=== PATIENT | female | born 1995 | race Caucasian/White ===

== ENCOUNTER 2019-02-14 19:56 | Outpatient (CLI) | payer OTHER ==
[~2019-02-14] VITALS: Ht 160 cm; Wt 59.5 kg
[2019-02-14 20:24] VITALS: BP 117/83
[2019-02-14] MEDS ORDERED: ZYRTTAB8 PO (20:34)
--- NOTE | 2019-02-14 21:02 | IPNPDOC ---
Text Note Date of Service The patient was seen on 02/14/19. NOTE 23 yo at 37+3 weeks gestation presented to L&D with the complaint of a small amount of vaginal discharge since about 1200 today. She had PROM with her first and was concerned, however the leakage never seemed like fluid. Today she denies any vaginal bleeding or contractions. She endorses excellent movement. Chaperoned by L&D RN Vitals - VSS, afebrile, normotensive, non tachycardic General - AAXO3, laying in bed, NAD, pleasant and conversant Abdomen - Gravid uterus, no fundal tenderness Pelvic - Normal external genitalia. Speculum placed into the vagina and the cervix was visualized. Scant physiologic discharge in the vaginal vault. Negative pooling of fluid. Swab obtained for microscopy and nitrazine. Speculum removed. Cervix cl/thick/high to digital exam. Negative nitrazine, negative ferning, negative YEIMI for yeast and negative for BV Bedside TAUS (anatomy not assessed): Viable SIUP in cephalic presentation. +gross movement. DAVIS 11.9cm. FCA measured at 130s. FHR tracing - Moderate variability, +accels, no decels, Reactive NST. 2 contractions on monitor. No evidence of ruptured membranes or infection. Suspect discharge is physiologic. Reassuring status on NST and TAUS. Discharged home with return precautions. All questions answered. DO WANG Lennon Fishbone, I+O Esequiel PIÑA, I+O Vital Signs Date Time Temp Pulse Resp B/P (MAP) Pulse Ox O2 Delivery O2 Flow Rate FiO2 02/14/19 20:24 98.4 88 16 117/83 (94) TITUS GARRISON DO Feb 14, 2019 21:02
== END 2019-02-14 20:29 | disposition home or self-care (01) ==
LOC: M LDO 19:56
PROVIDERS: ATTEND Obstetrics & Gynecology
DX: O26.893 Other specified pregnancy related conditions, third trimester (principal); N89.8 Other specified noninflammatory disorders of vagina; Z3A.37 37 weeks gestation of pregnancy
CPT/HCPCS: 59025; 76815; G0378; G0463

== ENCOUNTER 2019-02-19 10:21 | Inpatient (IN) | payer OTHER ==
[2019-02-19] VITALS (25 sets, daily range): BP systolic 116–146; BP diastolic 71–90
[~2019-02-19] VITALS: Ht 160 cm; Wt 58.4 kg
[~2019-02-19 10:21] MED LIST: ZYRTTAB8 PO
[2019-02-19] MEDS ORDERED: BUTORPHANOL 2 MG/ML INJ (J0595) IV PRN (13:45)
[2019-02-19 14:45] LABS: HEMATOCRIT 32.3 % (36.0-47.0); HEMOGLOBIN 10.7 g/dl (12.0-15.5); MEAN CORPUSCULAR HEMOGLOBIN 28.3 pg (27.0-33.0); MEAN CORPUSCULAR HGB CONC 33.1 g/dl (32.0-36.5); MEAN CORPUSCULAR VOLUME 85.4 fl (80.0-96.0); PLATELET COUNT, AUTOMATED 119 10^3/uL (150-450); RED BLOOD COUNT 3.78 10^6/uL (4.00-5.40); WHITE BLOOD COUNT 6.5 10^3/uL (4.0-10.0)
[2019-02-19] MEDS ORDERED: LACTATED RINGER'S 1000 ML IV STA (19:44)
--- NOTE | 2019-02-19 19:57 | HPEPDOC ---
Obstetrical History & Physical General Date of Admission History of Present Illness 23 yo at 38+1 weeks gestation by LMP of [id number] presented to L&D today with regular, painful contractions acutely worsening as the day progressed. She denies any vaginal bleeding or leakage of fluid. She endorses excellent movement. is uncomplicated. She had care originally in [facility] but transferred to the [facility] in 3rd trimester. Chief Complaint: Contractions, term Information Provided By: Patient Age: 23 : 2 Term: 1 Pre-term: 0 Abortions: 0 Livin Care Care: Good Care Dating Final EDC: Mar 04, 2019 Final EDC for Daily Update: Mar 04, 2019 Final EDC by: LMP ([id number]) LMP: May 28, 2018 Antepartum Course Diagnos(e)s Exercise induced asthma Anxiety and history of panic attacks Past Medical History Past Obstetrical History : Past Obstetrical History: Multigravida ( at 40 weeks in 2017 with pelvis proven to 8lbs 1oz) Type of Delivery: Spontaneous Vaginal Del. Complications: No LABORATORY ADMINISTRATIVE DIRECTOR History: No pertinent history Past Medical History Medical History Exercise induced asthma Anxiety and history of panic attacks Surgical History: Mccoy teeth Family History Significant Family History: No pertinent family hx Social History Marital Status: Family situation: Spouse/partner deployed ( attempting to return from [place] this Saturday) Psychosocial History: Anxiety (History of anxiety and panic attacks) * Smoker: non-smoker Alcohol: Denies Drugs: denies Imunizations Tdap status: current Influenza Status: current Allergies Coded Allergies: Peanut (Verified Allergy, Unknown, HIVES, 02/14/19) Medications Scheduled Cetirizine HCl/Pseudoephedrine (Zyrtec-D Tablet) 1 Each Tab.er.12h, 1 TAB PO BID for allergy symptoms Physical Examination Physical Examination GENERAL: Alert and oriented times three. ABDOMEN: Gravid and non-tender to touch. FETUS: Is vertex (VTX) by sterile vaginal examination (SVE), EXTREMITIES: No edema. Patient made cervical change from 3 to 5cm while being observed today. Vital Signs/I&O Vital Signs Date Time Temp Pulse Resp B/P (MAP) Pulse Ox O2 Delivery O2 Flow Rate FiO2 02/19/19 19:11 98.1 75 16 134/89 (104) Laboratory Data 24H LABS Laboratory Tests 2 02/19/19 14:13: Nucleated Red Blood Cells % (auto) 0.0, Hepatitis B Surface Antigen (Rapid) NEGATIVE CBC/BMP Laboratory Tests 02/19/19 14:13 Red Blood Count 3.78 L, Mean Corpuscular Volume 85.4, Mean Corpuscular Hemoglobin 28.3, Mean Corpuscular Hemoglobin Concent 33.1, Red Cell Distribution Width 14.4 Urine Culture: No Growth Pertinent Laboratoy Data Blood Type: O+ RBC Antibody Screen: Negative HIV: Negative Hepatitis B: Negative Hepatitis C: Negative Rapid Plasma Reagin: Nonreactive Rubella: Immune Varicella: Immune Chlamydia/Gonorrhea: Negative Group B Streptococcus: Negative Quad Screen Test: Unknown Cystic Fibrosis: Unknown Glucose Tolerance Test: 85 Anatomy Ultrasound Placenta Location: Anterior Normal Anatomy: Yes Placenta Previa: No Vaginal Examination Dilation: 5 cm Effacement: 80% Station: -2 Cervical Consistency: Soft Cervical Position: Middle Presentation: Cephalic presentation Position: Vertex (occiput) Assessment Heart Rate (FHR): 130 Variability: Moderate Accelerations: Positive Decelerations: None Tocometer Contractions: Yes Frequency: regular, every 2-5 min. Duration: greater than 60 seconds Strength: palpated as moderate Assessment/Plan Assessment 23 yo at 38+1 weeks gestation presented in labor. Made cervical change during observation from 3 to 5cm. Plan Admit to L&D for expectant management of labor. Will augment labor as clinically indicated. Apply IV fluids. GBS negative. Clear liquid diet. Patient candidate for epidural if desired. Anticipate . DO BLADIMIR Lennon CHRISTOPHER J. DO Feb 19, 2019 19:57
[2019-02-19] MEDS ORDERED: ONDANSETRON 4MG/2ML VIAL (J2405) IV PRN ×2 (20:00→21:00)
[2019-02-19] MEDS ORDERED: FENTANYL 2MCG/ML ROPIVACAINE 0.2% IN 0.9% NACL 100ML IVBAG As Ordered ONE (20:15)
[2019-02-19] MEDS ORDERED: EPIDURAL/PCA KEYS XX PRN (21:00)
[2019-02-19] MEDS ORDERED: diphenhydrAMINE INJ 50MG/ML VIAL (J1200) IV PRN (21:00)
[2019-02-19] MEDS ORDERED: FENTANYL/ROPIVACAINE/NACL BAG 100 ML EPIDURAL SCH (21:00)
[2019-02-19] MEDS ORDERED: NALOXONE INJ 0.4 MG/1 ML VIAL (J2310) IV PRN (21:00)
[2019-02-19] MEDS ORDERED: LACTATED RINGER'S 1000 ML IV PRN (21:00)
[2019-02-19] MEDS ORDERED: ePHEDrine SULFATE 25 MG/5 ML(5MG/ML) SYRINGE IV PRN (21:00)
[2019-02-19] MEDS ORDERED: REFRIGERATOR IV KEYS XX PRN (21:00)
[2019-02-19] MEDS ORDERED: EPIDURAL COMMENT XX SCH (21:00)
[2019-02-20] VITALS (15 sets, daily range): BP systolic 119–156; BP diastolic 68–96
[2019-02-20] MEDS ORDERED: OXYTOCIN 30 UNITS IN 0.9% NaCl 500ML IV BAG (J2590) As Ordered ONE (00:39)
--- NOTE | 2019-02-20 00:41 | IPNPDOC ---
Text Note Date of Service The patient was seen on 02/20/19. NOTE Patient comfortable with epidural in place. Cervix: /1. Incidental SROM with exam, productive of a large amount of clear fluid. FHR Cat I. Patient progressing well. DO Rudi VS,Esequiel, I+O VS, Esequiel, I+O Laboratory Tests 02/19/19 14:13 Red Blood Count 3.78 L, Mean Corpuscular Volume 85.4, Mean Corpuscular Hemoglobi n 28.3, Mean Corpuscular Hemoglobin Concent 33.1, Red Cell Distribution Width 14.4 Vital Signs Date Time Temp Pulse Resp B/P (MAP) Pulse Ox O2 Delivery O2 Flow Rate FiO2 02/19/19 22:38 83 18 124/78 (93) 02/19/19 19:11 98.1 I&O- Last 24 Hours up to 6 AM 02/20/19 06:00 Intake Total 1882 ml Output Total 150 ml Balance 1732 ml TITUS GARRISON DO Feb 20, 2019 00:41
--- NOTE | 2019-02-20 03:05 | DNPDOC ---
[facility] Delivery Note Delivery Note DATE OF DELIVERY: 20Feb2019 at ~0250 PREDELIVERY DIAGNOSIS: 38+2 weeks gestation and active labor POST DELIVERY DIAGNOSIS: Delivered. PROCEDURE: Spontaneous vaginal delivery CUSTOMER SOLUTIONS SPECIALIST: Dr. Grijalva ANESTHESIA: None ESTIMATED BLOOD LOSS: 200 mL. FINDINGS: Viable male , 6lbs 14oz, Apgars 8/9 DELIVERY SUMMARY: Presented to room as patient felt urge to push. Exam revealed fetus at +2 station. The bed was broken down and she was prepped for delivery. With excellent maternal effort her delivered after less than 5 minutes of pushing. presentation was MICHELLE with restitution to LOT. There was a tight, double nuchal cord that was delivered through and reduced manually with delivery. The right anterior shoulder delivered with gentle traction followed easily by the remainder of the body. The infant was dried and stimulated on the field and a bulb suction was used. The was placed on the maternal abdomen and cried vigorously. The three vessel cord was then clamped and cut by the patient's mother in law after appropriate time delay. Third stage was then completed with gentle traction on the cord and it was productive of an intact placenta. The uterine fundus was firmed with massage and pitocin was administered IV bolus. Inspection of the vagina, perineum, and cervix revealed no lacerations. The fundus was palpated again and was firm. Sponge, instrument, and needle counts were correct X2. Mother stable when I le ft the room. DO BLADIMIR Lennon CHRISTOPHER J. DO Feb 20, 2019 03:05
[2019-02-20] MEDS ORDERED: OXYTOCIN DRIP 30 UNITS in APPROPRIATE DILUENT 1 EA IV SCH (04:12)
[2019-02-20] MEDS ORDERED: ACETAMINOPHEN TAB 650MG DOSE (2X325MG) PO PRN (04:15)
[2019-02-20] MEDS ORDERED: MEASLES,MUMPS,RUBELLA VACCINE INJ (MMR-II) (90707) SC SCH (04:15)
[2019-02-20] MEDS ORDERED: DIBUCAINE 1% OINTMENT 30GM TOP PRN (04:15)
[2019-02-20] MEDS ORDERED: DOCUSATE SODIUM 100 MG CAP PO PRN (04:15)
[2019-02-20] MEDS ORDERED: IBUPROFEN 600 MG TAB PO PRN (04:15)
[2019-02-20] MEDS ORDERED: IBUPROFEN 800 MG TAB PO PRN (04:15)
[2019-02-20] MEDS ORDERED: ACETAMINOPHEN 500 MG TAB PO PRN (04:15)
[2019-02-20] MEDS ORDERED: ONDANSETRON 4MG/2ML VIAL (J2405) IV PRN (04:15)
[2019-02-20] MEDS ORDERED: RHOGAM 300 MCG (1500 IU) INJ (J2790) IM SCH (04:15)
[2019-02-20] MEDS ORDERED: METHYLERGONOVINE MALEATE 0.2 MG/ML VIAL (J2210) As Ordered ONE ×2 (05:44→05:45)
[2019-02-20] MEDS ORDERED: METHYLERGONOVINE MALEATE 0.2 MG/ML VIAL (J2210) IM ONE (05:45)
[2019-02-20 14:19] LABS: RUBELLA IgG QUALITATIVE IMMUNE (IMMUNE)
--- NOTE | 2019-02-20 14:56 | IPN ---
DATE: 02/20/2019 This patient requested circumcision of her male . After discussing risks and benefits of circumcision, the medical and nonmedical indications, penile block and aftercare, she expressed understanding of penile block and aftercare, signed the consent form. All questions were answered. 20-minute discussion.
[2019-02-20] MEDS: PRENATAL VITAMINS CHEWABLE TABLET PO SCH (19:00)
[2019-02-21 05:46] VITALS: BP 117/75
[2019-02-21] MEDS ORDERED: PRENCHW PO (07:02)
[2019-02-21] MEDS ORDERED: IBUP80TA PO (07:02)
[2019-02-21] MEDS ORDERED: COLA100C5 PO (07:02)
[2019-02-21] MEDS ORDERED: DIBU10OI TOP (07:02)
[2019-02-21] MEDS: PRENATAL VITAMINS CHEWABLE TABLET PO SCH (08:56)
--- NOTE | 2019-02-21 14:30 | DSES ---
DATE OF ADMISSION: 02/19/2019 DATE OF DISCHARGE: 02/21/2019 This is a 23-year-old 2, now para 2, admitted at 31 and 1 weeks of gestation with contractions, spontaneous vaginal delivery male, 6 pounds 4 ounces. scores of 8 and 9 at one and five minutes respectively. Admitting hemoglobin 10.7 hematic 32.3 and platelets were 119. On discharge, her blood pressure was 117/75, respirations 16, pulse 85, temperature is 98.0. We discussed phlebitis, cystitis, mastitis, endometritis and cellulitis, diet, exercise, pain management, perineal, breast and wound care. The patient was given her medications upon discharge the rest examination unremarkable. Normocephalic, atraumatic. Neck: Full range of motion. Pupils equal and reactive to light. Distal pulses symmetric. No evidence of deep venous thrombosis (DVT), pulmonary embolism (PE), or superficial phlebitis. Chest is clear bilaterally bases. No wheeze or rhonchi. No costovertebral angle (CVA) tenderness. Abdomen soft uterus two below. Lochia is moderate. Four quadrant bowel sounds are normal and perineum is intact. There are no rashes, lesions or pruritus. No complaints of arthralgia, myalgia. No complaint of joint pain. No complaint of cough, wheeze, shortness breath or dyspnea on exertional. No nausea, vomiting, diarrhea or constipation. No urgency or frequency. The patient is presently , going well. The patient plans on a six week checkup at [facility] and we will discuss control at that time. All questions were answered. 20-minute discussion.
== END 2019-02-21 12:45 | disposition home or self-care (01) | DRG 807 ==
LOC: M LDO 10:21 → M LDI 20:11 → M OBS 02-20 10:31
PROVIDERS: ADMIT Obstetrics & Gynecology; ATTEND Obstetrics & Gynecology
PROC: 10E0XZZ Delivery of Products of Conception, External Approach (ICD-10-PCS; principal; 2019-02-20)
DX: O69.1XX0 Labor and delivery complicated by cord around neck, with compression, not applicable or unspecified (principal); Z37.0 Single live birth; Z3A.38 38 weeks gestation of pregnancy

== ENCOUNTER 2020-02-03 08:58 | Day surgery (SDC) | payer OTHER ==
[~2020-02-03] VITALS: Ht 160 cm; Wt 51.2 kg
[~2020-02-03 08:58] MED LIST changes: +BENA25CA4 PO; +CETI10CH PO; +COLA100C5 PO; +CYMB1CAP5 PO; +DIBU10OI TOP; +IBUP80TA PO; +LIDOCAINE 1% MDV 20ML VIAL SQ PRN; +LR 1,000 ML IV ONE; +PRENCHW PO
[2020-02-03 09:34] LABS: HEMATOCRIT 36.8 % (36.0-47.0); HEMOGLOBIN 12.4 g/dl (12.0-15.5); MEAN CORPUSCULAR HEMOGLOBIN 29.9 pg (27.0-33.0); MEAN CORPUSCULAR HGB CONC 33.7 g/dl (32.0-36.5); MEAN CORPUSCULAR VOLUME 88.7 fl (80.0-96.0); PLATELET COUNT, AUTOMATED 212 10^3/uL (150-450); RED BLOOD COUNT 4.15 10^6/uL (4.00-5.40); WHITE BLOOD COUNT 6.8 10^3/uL (4.0-10.0)
[2020-02-03 09:57] LABS: BLOOD UREA NITROGEN 12 MG/DL (7-18); CALCIUM LEVEL 8.3 MG/DL (8.5-10.1); CARBON DIOXIDE LEVEL 26 MEQ/L (21-32); CHLORIDE LEVEL 108 MEQ/L (98-107); CREATININE FOR GFR 0.57 MG/DL (0.55-1.30); GLOMERULAR FILTRATION RATE > 60.0 (>60); GLUCOSE, FASTING 88 MG/DL (70-100); HCG, SERUM QUANTITATIVE < 1.0 MIU/ML; POTASSIUM SERUM 3.8 MEQ/L (3.5-5.1); SODIUM LEVEL 140 MEQ/L (136-145)
[2020-02-03] MEDS ORDERED: ROCURONIUM BROMIDE 50 MG/5 ML VIAL As Ordered ONE (10:10)
[2020-02-03] MEDS ORDERED: fentaNYL 100 MCG/2 ML INJECTION (J3010) As Ordered ONE ×2 (10:10→13:36)
[2020-02-03] MEDS ORDERED: LIDOCAINE 2% 100MG/5ML SDV (FOR ANES.) As Ordered ONE (10:10)
[2020-02-03] MEDS ORDERED: propofoL 200 MG/20 ML VIAL As Ordered ONE (10:10)
[2020-02-03] MEDS ORDERED: MIDAZOLAM INJ 2MG/2ML VIAL (J2250 PER 1MG) As Ordered ONE ×2 (10:11→10:49)
[2020-02-03] MEDS ORDERED: dexameTHASONE 4 MG/ML 1ML VIAL (J1100 PER 1MG) As Ordered ONE (10:11)
[2020-02-03] MEDS ORDERED: ONDANSETRON 4MG/2ML VIAL As Ordered ONE (10:11)
[2020-02-03] MEDS ORDERED: BUPIVACAINE HCL 0.5% 10ML VIAL As Ordered ONE (10:28)
[2020-02-03] MEDS ORDERED: METOCLOPRAMIDE INJ 10MG/2ML VIAL (J2765 PER 1) As Ordered ONE ×2 (10:46→12:26)
[2020-02-03] MEDS ORDERED: ACETAMINOPHEN 650 MG SUPP As Ordered ONE (11:38)
[2020-02-03] MEDS ORDERED: KETOROLAC 60MG 2ML VIAL As Ordered ONE (11:48)
[2020-02-03] MEDS ORDERED: SUGAMMADEX SODIUM 500 MG/5 ML VIAL (BRIDION) As Ordered ONE (11:48)
[2020-02-03] MEDS ORDERED: fentaNYL 100 MCG/2 ML INJECTION (J3010) IV PRN (12:45)
[2020-02-03] MEDS ORDERED: HYDROMORPHONE HCL 0.5 MG/ 0.5 ML SYRINGE (J1170 PER 1) IV PRN (12:45)
[2020-02-03] MEDS ORDERED: LR 1,000 ML IV SCH (12:45)
[2020-02-03] MEDS ORDERED: oxyCODONE 5MG TAB PO PRN (12:45)
[2020-02-03] MEDS ORDERED: KETOROLAC 30 MG/ML 1ML VIAL IV PRN (12:45)
[2020-02-03] MEDS ORDERED: ONDANSETRON 4MG/2ML VIAL IV PRN (12:45)
[2020-02-03] MEDS: MEPERIDINE INJ 25 MG/ML VIAL (J2175) IV PRN ×2 (12:47→12:59)
[2020-02-03] MEDS ORDERED: MEPERIDINE INJ 25 MG/ML VIAL (J2175) As Ordered ONE (12:49)
[2020-02-03 14:35] VITALS: BP 115/69
--- NOTE | 2020-02-04 14:00 | RO ---
DATE OF PROCEDURE: 02/03/2020 PREOPERATIVE DIAGNOSIS: Satisfied parity POSTOPERATIVE DIAGNOSIS: Satisfied parity OPERATION PROPOSED: Operative laparoscopy, bilateral salpingectomy. OPERATION PERFORMED: Operative laparoscopy, bilateral salpingectomy. SURGEON: Dr. Evin Wren POCKET GRINDER OPERATOR: Dr. Noonan (For retraction, extraction and visualization, without which the surgery could not be completed). ANESTHESIA: General plus local anesthetic for intraperitoneal procedures. ESTIMATED BLOOD LOSS: Less than 20 mL DESCRIPTION OF PROCEDURE: After adequate time out, prepped and draped in the lithotomy position, Ocasio catheter in the bladder draining clear urine, acetaminophen suppository 1300 mg per rectum, sequentials in place. No antibiotics. COVID negative. A small subumbilical incision was made. The Veress needle was applied, 3.6 liters of CO2 at a flow rate of 14 to a pressure 15. Direct entry with the 0 scope 5 mm. Panoramic review, the upper abdomen was normal on the right side, upper abdomen on the left side was normal, both ovaries were appeared to be normal, both tubes to the fimbriated end were normal, the appendix itself appeared to be normal, the uterus was small midline, and the cul-de-sac was clear. There was a little bit of residual blood, but this was from her period. Her last menstrual period (LMP) started 02/03/2020. Two 5 mm ports were placed on the left side. We then elevated the right tube and using the LigaSure we ligated off the right tube to the cornual end. We then dropped it into the abdomen. We then did a similar procedure on the left side elevating the tube. Using the LigaSure, we excised off the left tube to the cornual end. After which, we picked up the tubes separately and brought them through the 5 mm port. Both tubes were sent to pathology under separate cover. Panoramic review after, showed no evidence of active bleeding, both ovaries appeared to be normal and intact. The uterus itself was complete. With that done, instrument and pad count correct. We deflated the abdomen to 4 mm pressure. We removed the two lateral ports. We removed the mainstem port. We closed up the incisional sites with #4-0 Vicryl using Dermabond to close the skin sites. We then went down below and removed the uterine elevator and the Ocasio catheter. The patient was sent to recovery in good condition.
== END 2020-02-03 15:00 | disposition home or self-care (01) ==
LOC: M SDC 08:58
PROVIDERS: ATTEND Obstetrics & Gynecology
DX: Z30.2 Encounter for sterilization (principal); Z91.010 Allergy to peanuts; Z91.018 Allergy to other foods; K21.9 Gastro-esophageal reflux disease without esophagitis; F41.9 Anxiety disorder, unspecified; F32.9 Major depressive disorder, single episode, unspecified
CPT/HCPCS: 36415; 58661; 80048; 84702; 85027; 88302; J1100; J1885; J2175; J2250; J2405; J2765; J3010

== ENCOUNTER 2020-04-12 13:37 | Emergency (ER) | payer OTHER ==
[~2020-04-12] VITALS: Ht 160 cm; Wt 50.7 kg
[~2020-04-12 13:37] MED LIST changes: -LIDOCAINE 1% MDV 20ML VIAL SQ PRN; -LR 1,000 ML IV ONE
[2020-04-12] MEDS ORDERED: AMOX500C PO (14:12)
[2020-04-12] MEDS ORDERED: DOXY100T PO (14:12)
[2020-04-12 14:41] LABS: HEMATOCRIT 31.1 % (36.0-47.0); HEMOGLOBIN 10.7 g/dl (12.0-15.5); MEAN CORPUSCULAR HEMOGLOBIN 30.7 pg (27.0-33.0); MEAN CORPUSCULAR HGB CONC 34.4 g/dl (32.0-36.5); MEAN CORPUSCULAR VOLUME 89.4 fl (80.0-96.0); PLATELET COUNT, AUTOMATED 184 10^3/uL (150-450); RED BLOOD COUNT 3.48 10^6/uL (4.00-5.40); WHITE BLOOD COUNT 4.2 10^3/uL (4.0-10.0)
[2020-04-12 15:18] LABS: ALT/SGPT 36 U/L (12-78); BILIRUBIN,DIRECT 0.4 MG/DL (0.0-0.2); BILIRUBIN,TOTAL 2.1 MG/DL (0.2-1.0); BLOOD UREA NITROGEN 11 MG/DL (7-18); CALCIUM LEVEL 9.1 MG/DL (8.5-10.1); CARBON DIOXIDE LEVEL 29 MEQ/L (21-32); CHLORIDE LEVEL 105 MEQ/L (98-107); CREATININE FOR GFR 0.56 MG/DL (0.55-1.30); GLOMERULAR FILTRATION RATE > 60.0 (>60); GLUCOSE, FASTING 85 MG/DL (70-100); LIPASE 83 U/L (73-393); POTASSIUM SERUM 3.6 MEQ/L (3.5-5.1); SODIUM LEVEL 139 MEQ/L (136-145); TOTAL PROTEIN 7.4 GM/DL (6.4-8.2)
[2020-04-12 17:24] LABS: CPK CREATINE PHOSPHOKINASE 46 U/L (26-192); HEPATITIS A ANTIBODY IGM NEGATIVE (NEGATIVE); HEPATITIS B CORE ANTIBODY IGM NEGATIVE (NEGATIVE); HEPATITIS B SURFACE ANTIGEN NEGATIVE (NEGATIVE); HEPATITIS C VIRUS ABY INDEX 0.2 INDEX (<0.8)
--- NOTE | 2020-04-12 19:11 | REPVR ---
PROCEDURE INFORMATION: Exam: US Abdomen, Limited; Right Upper Quadrant Exam date and time: 04/12/2020 5:17 PM Age: 24 years old Clinical indication: Abdominal pain; Additional info: Jaundice TECHNIQUE: Imaging protocol: US abdomen. Real time ultrasound with image documentation. Limited exam focused on the right upper quadrant. COMPARISON: No relevant prior studies available. FINDINGS: Liver: The echogenicity of the liver is within normal limits. No liver lesion is identified from the images obtained. The contour of the liver is smooth. No hepatomegaly is noted. Gallbladder: Normal. No gallstones, masses, sonographic Gonzales's sign, gallbladder wall thickening, or pericholecystic fluid. Common bile duct: No dilation (1 mm in diameter). No stones are identified in the imaged portion of the common bile duct. Pancreas: The visualized portion of the pancreas is unremarkable. Right kidney: The right kidney is normal in appearance and measures 9.1 cm in length. There is no renal cortical thinning. The renal cortical echogenicity is within normal limits. No renal lesion is seen. There is no hydronephrosis. No obvious stones are seen in the renal collecting system. Intraperitoneal space: No free fluid is seen from the images obtained. IMPRESSION: No acute findings. Electronically signed by: Jorge Mistry On 04/12/2020 19:11:43 PM
[2020-04-12] MEDS ORDERED: ISOVUE-370 76% 100ML VIAL As Ordered ONE (19:33)
--- NOTE | 2020-04-12 20:14 | REPVR ---
PROCEDURE INFORMATION: Exam: CT Abdomen And Pelvis With Contrast Exam date and time: 04/12/2020 7:37 PM Age: 24 years old Clinical indication: Jaundice TECHNIQUE: Imaging protocol: Computed tomography of the abdomen and pelvis with intravenous contrast. Radiation optimization: All CT scans at this facility use at least one of these dose optimization techniques: automated exposure control; mA and/or kV adjustment per patient size (includes targeted exams where dose is matched to clinical indication); or iterative reconstruction. Contrast material: ISOVUE 370; Contrast volume: 100 ml; Contrast route: IV COMPARISON: US Abdomen 04/12/2020 5:23 PM FINDINGS: Lungs: The imaged portions of the lung bases are clear. The lungs were not fully imaged. Heart: No cardiomegaly or pericardial effusion. Diaphragm: Intact. Liver: Unremarkable. No liver lesion is identified. The contour of the liver is smooth. No hepatomegaly is noted. The liver measures 13.1 cm in craniocaudal dimension at the level of the right midclavicular line. Gallbladder and bile ducts: No calcified gallstones are noted. No gallbladder wall thickening, pericholecystic fluid, or pericholecystic inflammatory changes are identified. No dilation of the bile ducts is noted. No calcified stones are seen in the common bile duct. Pancreas: Normal. No dilation of the main pancreatic duct is noted. There is no inflammatory fat stranding around the pancreas to suggest acute pancreatitis. Spleen: No splenic lesion is noted. The spleen is enlarged and measures 13.1 cm. Adrenals: Normal. No adrenal mass is noted. Kidneys and ureters: There is a 2 mm calculus in a midpole calyx of the left kidney. No stones are noted in the right kidney or in the ureters. There is no hydronephrosis or hydroureter. No renal lesion is seen. There are no wedge-shaped areas of low attenuation in the kidneys to suggest pyelonephritis. There is no renal abscess or perinephric fluid collection. Stomach and bowel: The stomach and small bowel are unremarkable. There is no evidence for a bowel obstruction, diverticulosis, diverticulitis, colitis, perforated viscus, pneumatosis intestinalis, intussusception, or volvulus. Appendix: Normal. There is no evidence for appendicitis. Intraperitoneal space: There is a small amount of free fluid that measures water density in the cul-de-sac. No abscess or intraperitoneal free air is present. Retroperitoneal space: No fluid collection. No mass. Vasculature: The abdominal aorta is patent, normal in caliber, and there is no dissection. The iliac arteries, common femoral arteries, renal arteries, celiac artery, superior mesenteric artery, and inferior mesenteric artery are patent. Lymph nodes: No enlarged lymph nodes. Bladder: The partially distended urinary bladder is unremarkable. No stones or masses are seen in the bladder. Reproductive: The uterus is anteverted. Incidental note is made of a 1.2 cm corpus luteal cyst in the left ovary for which follow-up is not necessary. The right ovary is unremarkable. No tubo-ovarian abscess is present. Bones/joints: There is no fracture or dislocation. No suspicious osteolytic or osteoblastic lesion. Soft tissues: There is a tiny fat containing umbilical hernia. Incidental note is made of a piercing in the umbilical region. IMPRESSION: 1. No intrahepatic or extrahepatic biliary ductal dilation. 2. Splenomegaly. 3. Nonobstructive left nephrolithiasis. Electronically signed by: Jorge Mistry On 04/12/2020 20:14:33 PM
[2020-04-12 20:33] VITALS: BP 106/76
[2020-04-12 20:43] LABS: MONO REFLEX EBV COMP NEGATIVE (NEGATIVE)
[2020-04-14 15:06] LABS: EBV AB TO NUCLEAR ANTIGEN <18.0 U/mL (0.0-17.9); EBV VIRAL CAPSID AG IgG >600.0 U/mL (0.0-17.9); EBV VIRAL CAPSID AG IgM <36.0 U/mL (0.0-35.9)
== END 2020-04-12 20:40 | disposition home or self-care (01) ==
LOC: M ED 13:37
DX: R17 Unspecified jaundice (principal); D64.9 Anemia, unspecified; F33.9 Major depressive disorder, recurrent, unspecified; F41.9 Anxiety disorder, unspecified; Z79.899 Other long term (current) drug therapy
CPT/HCPCS: 36415; 74177; 76705; 80048; 80076; 81001; 82550; 83690; 85027; 86308; 86664; 86665; 86705; 86709; 86803; 87340; 99284; Q9967

== ENCOUNTER → 2021-03-28 | Outpatient (REF) | payer OTHER ==
[~2021-03-28] MED LIST changes: +AMOX500C PO; -DIBU10OI TOP; +DIBU28OI2 TOP; +DOXY100T PO
== END ==
LOC: M WUC 16:20
PROVIDERS: ATTEND Physician Assistant
DX: J02.9 Acute pharyngitis, unspecified (principal)